=== PATIENT | female | born 1985 | race Caucasian/White ===

== ENCOUNTER 2020-12-21 15:37 | Emergency (ER) | payer OTHER, MEDICAID, SELFPAY ==
[2020-12-21 15:57] VITALS: BP 143/93; PULSE 86; RESP 16; TEMP 37.4; O2SAT 97; BMI 30.9
[2020-12-21 16:00] VITALS: PULSE 83; RESP 21; O2SAT 99
--- NOTE | 2020-12-21 16:03 | ED.CHESTPAIN ---
HPI - Chest Pain <Tiffanie Willams DO - Last Filed: 12/24/20 02:03> General Chief Complaint: Chest Pain Stated Complaint: BROWN SPOTS ON FEET TIGHTNESS OF CHEST NAUSEA Time Seen by Provider: 12/21/20 15:57 Source: patient Mode of arrival: Ambulatory Limitations: no limitations History of Present Illness HPI narrative: Patient is a 35-year-old female who presents with a variety of complaints. She noticed for very small brown spots on the top of her feet this morning which were not there yesterday. She denies any injury. She said she had very long day and then when out to dinner with a friend and when she got she noticed that her legs were extremely swollen. She slept with her legs elevated and the swelling was gone today. She said last night she got extremely sweaty and today she is short of breath with exertion. She is a smoker but quit 2 days ago because it was causing her to gag. She has been around COVID positive people on [facility], they have started testing positive. She has not yet been tested. She is having some chest tightness and feeling like she cannot breathe. But she is speaking without any difficulty at this time. Duration: constant Onset: during exertion Severity: mild Quality: tightness Related Data Home Medications Medication Instructions Recorded Confirmed escitalopram oxalate [Lexapro] #0 08/28/17 Previous Rx's Medication Instructions Recorded albuterol sulfate 2 puff INHALATION Q4-6H PRN #18 g 12/21/20 Allergies Allergy/AdvReac Type Severity Reaction Status Date / Time Penicillins [PENICILLINS] Allergy Unknown Unverified 12/06/17 13:10 Review of Systems <DO Tim Bob Last Filed: 12/24/20 02:03> Review of Systems ROS Unobtainable: All systems reviewed & are unremarkable except as noted in HPI and below Constitutional Constitutional: Denies chills, Reports excessive sweating, Denies fever(s), Denies lethargy and Denies weakness Eyes Eyes: Denies change in vision, Denies eye discharge, Denies irritation and Denies loss of vision ENT Ears, Nose, Mouth, and Throat: Denies change in voice, Denies dizziness, Denies neck pain and Denies sore throat Cardiovascular Cardiovascular: Reports chest pain, Denies syncope, Denies irregular heart rhythm, Denies lightheadedness, Denies palpitations, Reports dyspnea on exertion and Denies orthopnea Respiratory Respiratory: Reports as per HPI and Reports dyspnea on exertion Gastrointestinal Gastrointestinal: Denies abdominal pain, Denies change in bowel habits, Denies diarrhea, Denies nausea and Denies vomiting Musculoskeletal Musculoskeletal: Denies neck pain Integumentary/Breasts Skin/Breast: Denies pruritus, Denies erythema, Denies rash and Denies wounds Neurologic Neurologic: Denies dizziness, Denies syncope, Denies loss of vision and Denies weakness Endocrine Endocrine: Reports excessive sweating and Denies palpitations Patient History <Tiffanie Willams DO - Last Filed: 12/24/20 02:03> Medical History Patient denies medical problems Social History Smoking Status: Current every day smoker Smoking Status: Current every day smoker Exam <Tiffanie Willams DO - Last Filed: 12/24/20 02:03> Initial Vital Signs Initial Vital Signs: Vital Signs Temperature 99.4 F 12/21/20 15:57 Pulse Rate 86 12/21/20 15:57 Respiratory Rate 16 12/21/20 15:57 Blood Pressure 143/93 H 12/21/20 15:57 Pulse Oximetry 97 12/21/20 15:57 GENERAL: Well-appearing, well-nourished and in no acute distress. HEENT: Head atraumatic,EOMI, pupils reactive, face symmetric, moist mucous membranes CARDIOVASCULAR: Regular rate and rhythm without murmurs, rubs or gallops. RESPIRATORY: Breath sounds equal bilaterally, no wheezes rales or rhonchi. Speaks without any difficulty ABDOMEN: Soft, nontender. Normoactive bowel sounds all 4 quadrants. No guarding or rebound. EXTREMITIES: Normal range of motion, no clubbing or edema. Neurovascularly intact NEUROLOGICAL: Alert and oriented x4.Normal gait and speech. SKIN: Warm, dry, no laceration, no petechiae, no rashes or lesions. 2 very small dark spots on top of each foot. <Kwasi Rick DO - Last Filed: 12/21/20 17:40> Initial Vital Signs Initial Vital Signs: Vital Signs Temperature 99.4 F 12/21/20 15:57 Pulse Rate 86 12/21/20 15:57 Respiratory Rate 16 12/21/20 15:57 Blood Pressure 143/93 H 12/21/20 15:57 Pulse Oximetry 97 12/21/20 15:57 Course <Tiffanie Willams DO - Last Filed: 12/24/20 02:03> Orders Ordered: Discontinued Medications Albuterol (Albuterol Hfa Prepack) 1 [facility] SEEINSTR ONE Stop: 12/21/20 16:18 Albuterol/Ipratropium (Albuterol/Ipratropium 3 Ml Ampul) 3 ml INH NOW ONE Stop: 12/21/20 16:21 Last Admin: 12/21/20 16:54 Dose: 3 ml Documented by: RRALSTO Vital Signs Vital signs: Vital Signs - 8 hr 12/21/20 15:57 12/21/20 16:00 12/21/20 16:30 Temperature 99.4 F Pulse Rate 86 83 78 Respiratory Rate 16 21 19 Blood Pressure 143/93 H Pulse Oximetry 97 99 98 12/21/20 17:00 Temperature Pulse Rate 90 Respiratory Rate 17 Blood Pressure Pulse Oximetry 99 <Kwasi Rick DO - Last Filed: 12/21/20 17:40> Orders Ordered: Discontinued Medications Albuterol (Albuterol Hfa Prepack) 1 [facility] SEEINSTR ONE Stop: 12/21/20 16:18 Albuterol/Ipratropium (Albuterol/Ipratropium 3 Ml Ampul) 3 ml INH NOW ONE Stop: 12/21/20 16:21 Last Admin: 12/21/20 16:54 Dose: 3 ml Documented by: RRALSTO Vital Signs Vital signs: Vital Signs - 8 hr 12/21/20 15:57 12/21/20 16:00 12/21/20 16:30 Temperature 99.4 F Pulse Rate 86 83 78 Respiratory Rate 16 21 19 Blood Pressure 143/93 H Pulse Oximetry 97 99 98 12/21/20 17:00 Temperature Pulse Rate 90 Respiratory Rate 17 Blood Pressure Pulse Oximetry 99 MDM - Chest Pain <DO Tim Bob Last Filed: 12/24/20 02:03> Lab Data Result diagrams: 12/21/20 16:05 12/21/20 16:05 Labs: Lab Results 12/21/20 12/21/20 12/21/20 Range/Units 16:05 16:05 16:05 WBC 9.9 (4.5-11.0) X10^3/uL RBC 4.63 (4.0-5.2) X10^6/uL Hgb 11.9 L (12.0-16.0) g/dL Hct 37.2 (36-46) % MCV 80.3 (80-100) fL MCH 25.7 L (26-34) PG MCHC 32.0 (30-36) % RDW 15.4 H (11.6-14.8) % Plt Count 448 H (150-400) X10^3/uL Neut % (Auto) 68.9 (50-75) % Lymph % (Auto) 23.3 L (25-40) % Vil[place] % (Auto) 6.2 (3-14) % Eos % (Auto) 0.8 L (2-4) % Baso % (Auto) 0.8 (0-2) % Neut # (Auto) 6800 (6990-2318) /uL Lymph # (Auto) 2300 (5317-1804) /uL [place] # (Auto) 600 (0-900) /uL Eos # (Auto) 100 (0-450) /uL Baso # (Auto) 100 (0-100) /uL Sodium 141 (137-145) mmol/L Potassium 4.1 (3.4-5.1) mmol/L Chloride 104 (98-107) mmol/L Carbon Dioxide 26 (22-32) mmol/L BUN 10 (7-17) mg/dL Creatinine 0.60 (0.52-1.04) mg/dL Estimated GFR > 60.0 (>60) mL/min BUN/Creatinine Ratio 16.7 (6-22) Glucose 92 (70-100) mg/dL Calcium 9.8 (8.4-10.2) mg/dL Total Bilirubin 0.3 (0.2-1.3) mg/dL AST 24 (14-36) IU/L ALT 19 (<35) IU/L Alkaline Phosphatase 98 (38-126) U/L Total Creatine Kinase 26 L (30-135) U/L CK-MB (CK-2) TNP CK-MB (CK-2) Rel Index TNP Troponin I < 0.012 (0.01-0.034) ng/mL NT-Pro-B Natriuret Pep 59 (<125) pg/mL Total Protein 8.4 H (6.3-8.2) g/dL Albumin 4.6 (3.5-5.0) g/dL Globulin 3.8 (1.7-4.1) g/dL Albumin/Globulin Ratio 1.2 (1.0-2.8) SARS-CoV-2 (PCR) (Negative) 12/21/20 Range/Units 16:15 WBC (4.5-11.0) X10^3/uL RBC (4.0-5.2) X10^6/uL Hgb (12.0-16.0) g/dL Hct (36-46) % MCV (80-100) fL MCH (26-34) PG MCHC (30-36) % RDW (11.6-14.8) % Plt Count (150-400) X10^3/uL Neut % (Auto) (50-75) % Lymph % (Auto) (25-40) % Vil[place] % (Auto) (3-14) % Eos % (Auto) (2-4) % Baso % (Auto) (0-2) % Neut # (Auto) (1920-3275) /uL Lymph # (Auto) (0464-2901) /uL Vilas # (Auto) (0-900) /uL Eos # (Auto) (0-450) /uL Baso # (Auto) (0-100) /uL Sodium (137-145) mmol/L Potassium (3.4-5.1) mmol/L Chloride (98-107) mmol/L Carbon Dioxide (22-32) mmol/L BUN (7-17) mg/dL Creatinine (0.52-1.04) mg/dL Estimated GFR (>60) mL/min BUN/Creatinine Ratio (6-22) Glucose (70-100) mg/dL Calcium (8.4-10.2) mg/dL Total Bilirubin (0.2-1.3) mg/dL AST (14-36) IU/L ALT (<35) IU/L Alkaline Phosphatase (38-126) U/L Total Creatine Kinase (30-135) U/L CK-MB (CK-2) CK-MB (CK-2) Rel Index Troponin I (0.01-0.034) ng/mL NT-Pro-B Natriuret Pep (<125) pg/mL Total Protein (6.3-8.2) g/dL Albumin (3.5-5.0) g/dL Globulin (1.7-4.1) g/dL Albumin/Globulin Ratio (1.0-2.8) SARS-CoV-2 (PCR) Negative (Negative) Point of Care Testing Test Results Negative Urine Dip Bedside Urine Glucose Negative Bedside Urine Bilirubin - Negative Bedside Urine Ketone - Negative Urine Specific [place] 1.025 Bedside Urine Occult Blood - Negative Bedside Urine pH 6.0 Bedside Urine Protein - Negative Bedside Urine Urobilinogen - Negative Bedside Urine Nitrite - Negative Bedside Urine Leukocytes - Negative Esterase ECG Data Attestation: I personally reviewed and interpreted this ECG as follows: Prior ECG tracings: not available for review Interpretation: Normal sinus rhythm rate 87 p.r. interval 106 QRS [address] changes MDM Narrative Medical decision making narrative: Patient is being tested for COVID symptoms are quite a wide variety but she overall appears well. Patient signed out to Dr. Rick for further management. <Kwasi Rick, DO - Last Filed: 12/21/20 17:40> Lab Data Attestation: I reviewed the patient's lab results. Labs: Lab Results 12/21/20 12/21/20 12/21/20 Range/Units 16:05 16:05 16:05 WBC 9.9 (4.5-11.0) X10^3/uL RBC 4.63 (4.0-5.2) X10^6/uL Hgb 11.9 L (12.0-16.0) g/dL Hct 37.2 (36-46) % MCV 80.3 (80-100) fL MCH 25.7 L (26-34) PG MCHC 32.0 (30-36) % RDW 15.4 H (11.6-14.8) % Plt Count 448 H (150-400) X10^3/uL Neut % (Auto) 68.9 (50-75) % Lymph % (Auto) 23.3 L (25-40) % Vilas % (Auto) 6.2 (3-14) % Eos % (Auto) 0.8 L (2-4) % Baso % (Auto) 0.8 (0-2) % Neut # (Auto) 6800 (0863-1281) /uL Lymph # (Auto) 2300 (8914-7634) /uL Vilas # (Auto) 600 (0-900) /uL Eos # (Auto) 100 (0-450) /uL Baso # (Auto) 100 (0-100) /uL Sodium 141 (137-145) mmol/L Potassium 4.1 (3.4-5.1) mmol/L Chloride 104 (98-107) mmol/L Carbon Dioxide 26 (22-32) mmol/L BUN 10 (7-17) mg/dL Creatinine 0.60 (0.52-1.04) mg/dL Estimated GFR > 60.0 (>60) mL/min BUN/Creatinine Ratio 16.7 (6-22) Glucose 92 (70-100) mg/dL Calcium 9.8 (8.4-10.2) mg/dL Total Bilirubin 0.3 (0.2-1.3) mg/dL AST 24 (14-36) IU/L ALT 19 (<35) IU/L Alkaline Phosphatase 98 (38-126) U/L Total Creatine Kinase 26 L (30-135) U/L CK-MB (CK-2) TNP CK-MB (CK-2) Rel Index TNP Troponin I < 0.012 (0.01-0.034) ng/mL NT-Pro-B Natriuret Pep 59 (<125) pg/mL Total Protein 8.4 H (6.3-8.2) g/dL Albumin 4.6 (3.5-5.0) g/dL Globulin 3.8 (1.7-4.1) g/dL Albumin/Globulin Ratio 1.2 (1.0-2.8) SARS-CoV-2 (PCR) (Negative) 12/21/20 Range/Units 16:15 WBC (4.5-11.0) X10^3/uL RBC (4.0-5.2) X10^6/uL Hgb (12.0-16.0) g/dL Hct (36-46) % MCV (80-100) fL MCH (26-34) PG MCHC (30-36) % RDW (11.6-14.8) % Plt Count (150-400) X10^3/uL Neut % (Auto) (50-75) % Lymph % (Auto) (25-40) % Vil[place] % (Auto) (3-14) % Eos % (Auto) (2-4) % Baso % (Auto) (0-2) % Neut # (Auto) (7228-4284) /uL Lymph # (Auto) (7278-6823) /uL Vilas # (Auto) (0-900) /uL Eos # (Auto) (0-450) /uL Baso # (Auto) (0-100) /uL Sodium (137-145) mmol/L Potassium (3.4-5.1) mmol/L Chloride (98-107) mmol/L Carbon Dioxide (22-32) mmol/L BUN (7-17) mg/dL Creatinine (0.52-1.04) mg/dL Estimated GFR (>60) mL/min BUN/Creatinine Ratio (6-22) Glucose (70-100) mg/dL Calcium (8.4-10.2) mg/dL Total Bilirubin (0.2-1.3) mg/dL AST (14-36) IU/L ALT (<35) IU/L Alkaline Phosphatase (38-126) U/L Total Creatine Kinase (30-135) U/L CK-MB (CK-2) CK-MB (CK-2) Rel Index Troponin I (0.01-0.034) ng/mL NT-Pro-B Natriuret Pep (<125) pg/mL Total Protein (6.3-8.2) g/dL Albumin (3.5-5.0) g/dL Globulin (1.7-4.1) g/dL Albumin/Globulin Ratio (1.0-2.8) SARS-CoV-2 (PCR) Negative (Negative) Point of Care Testing Test Results Negative Urine Dip Bedside Urine Glucose Negative Bedside Urine Bilirubin - Negative Bedside Urine Ketone - Negative Urine Specific [place] 1.025 Bedside Urine Occult Blood - Negative Bedside Urine pH 6.0 Bedside Urine Protein - Negative Bedside Urine Urobilinogen - Negative Bedside Urine Nitrite - Negative Bedside Urine Leukocytes - Negative Esterase Imaging Data Chest x-ray: Radiologist's Impression: [address] [id number] ReportSigned Patient: Radha Mcadams [facility]#: [id number]: 1985Acct:[id number]/Sex: 35 / FDate of Service: 12/21/20Loc: EDAccession Number: [id number] Procedure: XR chest 2V Ordering Provider: Tiffanie Willams D.O. PROCEDURE: XR CHEST 2V INDICATIONS: short of breath TECHNIQUE: 2 views of the chest were acquired. COMPARISON: None. FINDINGS: Surgical changes and devices: None. Lungs and pleura: Lungs are clear. No pleural effusions or pneumothorax. Mediastinum: Mediastinal contours are normal. Heart size is normal. Bones and chest wall: No suspicious bony abnormalities. Soft tissues appear unremarkable. IMPRESSION: No acute cardiopulmonary disease process. Dictated by: Rebecca Lanier MD, PhD on 12/21/2020 at 16:45 Approved by: Rebecca Lanier MD, PhD on 12/21/2020 at 16:45 MDM Narrative Medical decision making narrative: Dr rick: Received turned over from Dr. Willams patient states she does feel better after the albuterol nebulizer. She is still having palpitations are she has a normal rate and rhythm on the monitor. Labs unremarkable. Chest x-ray is unremarkable. Will send home with an albuterol inhaler. Feel we can hold on further workup for now. Low suspicion for CHF. She is given return precautions and follow-up instructions. She expressed understanding agreement. Discharge Plan Departure Patient Disposition: Home Clinical Impression: Heart palpitations, Shortness of breath Instructions: DI for Shortness of Breath Activity Restrictions/Additional Instructions: Use the albuterol as directed. I recommend that you continue to abstain from smoking. I suspect that your symptoms will improve with time. Contact your primary provider for a follow-up. Return to the emergency department for any new or worsening symptoms Prescriptions: New albuterol sulfate 90 mcg/actuation HFA aerosol inhaler 2 puff inhalation Q4-6H PRN (Reason: shortness of breath or wheezing) Qty: 18 RF: 0 No Action escitalopram oxalate [Lexapro] 10 MG tablet Qty: 0 RF: 0
--- NOTE | 2020-12-21 16:17 | DI.RAD.S_ITS ---
PROCEDURE: XR CHEST 2V INDICATIONS: short of breath TECHNIQUE: 2 views of the chest were acquired. COMPARISON: None. FINDINGS: Surgical changes and devices: None. Lungs and pleura: Lungs are clear. No pleural effusions or pneumothorax. Mediastinum: Mediastinal contours are normal. Heart size is normal. Bones and chest wall: No suspicious bony abnormalities. Soft tissues appear unremarkable. IMPRESSION: No acute cardiopulmonary disease process. Dictated by: Rebecca Lanier MD, PhD on 12/21/2020 at 16:45 Approved by: Rebecca Lanier MD, PhD on 12/21/2020 at 16:45
[2020-12-21 16:28] LABS: Add Manual Diff / Slide Review NO; Basophils Absolute Auto 100 /uL (0-100); Basophils Percent Auto 0.8 % (0-2); Eosinophils Absolute Auto 100 /uL (0-450); Eosinophils Percent Auto 0.8 % (2-4); Hematocrit 37.2 % (36-46); Hemoglobin 11.9 g/dL (12.0-16.0); Lymphocytes Absolute Auto 2300 /uL (1100-4500); Lymphocytes Percent Auto 23.3 % (25-40); Mean Corpuscular Hemoglobin 25.7 PG (26-34); Mean Corpuscular Volume 80.3 fL (80-100); Monocytes Absolute Auto 600 /uL (0-900); Monocytes Percent Auto 6.2 % (3-14); Neutrophils Absolute Auto 6800 /uL (1500-7000); Neutrophils Percent Auto 68.9 % (50-75); Platelet Count 448 X10^3/uL (150-400); Red Blood Cell Count 4.63 X10^6/uL (4.0-5.2); Red Cell Distribution Width 15.4 % (11.6-14.8); White Blood Cell Count 9.9 X10^3/uL (4.5-11.0)
[2020-12-21 16:30] VITALS: PULSE 78; RESP 19; O2SAT 98
[2020-12-21 16:43] LABS: COVID19 -Nasal RAPID Negative (Negative)
[2020-12-21 16:45] LABS: Creatine Kinase 26 U/L (30-135)
[2020-12-21 16:47] LABS: Alanine Aminotransferase 19 IU/L (<35); Albumin 4.6 g/dL (3.5-5.0); Albumin Globulin Ratio 1.2 (1.0-2.8); Alkaline Phosphatase 98 U/L (38-126); Aspartate Aminotransferase 24 IU/L (14-36); BUN Creatinine Ratio 16.7 (6-22); Bilirubin Total 0.3 mg/dL (0.2-1.3); Blood Urea Nitrogen 10 mg/dL (7-17); Calcium 9.8 mg/dL (8.4-10.2); Carbon Dioxide 26 mmol/L (22-32); Chloride 104 mmol/L (98-107); Estimated Glomerular Filt Rate > 60.0 mL/min (>60); Globulin 3.8 g/dL (1.7-4.1); Glucose 92 mg/dL (70-100); HEMOLYSIS 17 (0-50); Potassium 4.1 mmol/L (3.4-5.1); Sodium 141 mmol/L (137-145); Total Protein 8.4 g/dL (6.3-8.2)
[2020-12-21] MEDS: ALBUTEROL/IPRATROPIUM 3 ML AMPUL INH (16:54)
[2020-12-21 16:58] LABS: NT-proBNP (BNP-Adult 18+) 59 pg/mL (<125); Troponin I < 0.012 ng/mL (0.01-0.034)
[2020-12-21 17:00] VITALS: PULSE 90; RESP 17; O2SAT 99
--- NOTE | 2020-12-21 17:03 | RT ---
Pt issued spacer.
[2020-12-21 17:12] VITALS: BP 120/62; PULSE 81; RESP 18; O2SAT 97
[2020-12-21 17:30] VITALS: PULSE 84; RESP 18; O2SAT 99
== END 2020-12-21 17:55 | disposition home or self-care (01) ==
PROVIDERS: Emergency Medicine; Emergency Provider Emergency Medicine
DX: R00.2 Palpitations (principal); R06.02 Shortness of breath; Z20.822 Contact with and (suspected) exposure to COVID-19
CPT/HCPCS: 71046; 80053; 81003; 81025; 82550; 83880; 84484; 85025; 87635; 93005; 94640; 99283; 99284; C9803

== ENCOUNTER → 2023-11-14 12:17 | Outpatient (CLI) | payer OTHER, MEDICAID, SELFPAY ==
--- NOTE | 2023-11-14 12:21 | DI.RAD.S_ITS ---
PROCEDURE: XR ANKLE RT MIN 3V INDICATIONS: RT FOOT AND ANKLE PAIN TECHNIQUE: 3 views of the ankle were acquired. COMPARISON: None. FINDINGS: Bones: No fractures or dislocations. Ankle mortise is normally aligned. No suspicious bony lesions. Soft tissues: No tibiotalar joint effusion. Achilles tendon appears normal. IMPRESSION: No acute bony abnormality or significant effusion. If there are persistent symptoms or clinical suspicion for pathology, then repeat radiographs or advanced imaging (CT or MRI) may be considered for further evaluation. Dictated by: Lv Harrison M.D. on 11/14/2023 at 15:28 Approved by: Lv Harrison M.D. on 11/14/2023 at 15:33
--- NOTE | 2023-11-14 12:21 | DI.RAD.S_ITS ---
PROCEDURE: XR FOOT RT MIN 3V INDICATIONS: RT FOOT AND ANKLE PAIN TECHNIQUE: 3 views of the foot were acquired. COMPARISON: None. FINDINGS: Bones: No fractures or dislocations. No suspicious bony lesions. Soft tissues: No tibiotalar joint effusion. Achilles tendon appears normal. IMPRESSION: No acute bony abnormality. If there are persistent symptoms or clinical suspicion for pathology, then repeat radiographs or advanced imaging (CT or MRI) may be considered for further evaluation. Dictated by: Lv Harrison M.D. on 11/14/2023 at 15:33 Approved by: Lv Harrison M.D. on 11/14/2023 at 15:37
== END ==
PROVIDERS: PCP Physician Assistant; Referring Provider Podiatrist Foot & Ankle Surgery; Visit Provider Podiatrist Foot & Ankle Surgery
DX: M25.571 Pain in right ankle and joints of right foot (principal)
CPT/HCPCS: 73610; 73630

== ENCOUNTER → 2025-02-26 08:06 | Outpatient (CLI) | payer OTHER, SELFPAY ==
--- NOTE | 2025-02-26 08:08 | DI.NM.S_ITS ---
PROCEDURE: NM EXERCISE TREADMILL NON NUC COMPARISON: None. INDICATIONS: SOB/CHEST PAIN FINDINGS: Patient exercised per the standard Abdulaziz protocol. Total exercise time was 5 minutes and 1 seconds. Test was terminated secondary to chest pain. Maximal heart rate obtained is 164 bpm which is 91% of max predicted heart rate. Maximum blood pressure was 142/72[place] [address]. [place] +42%. 7.0 METS. No ischemic changes noted. No arrhythmias present. Normal heart rate and blood pressure response to exercise. Patient did complain of chest pain at peak stress which resulted in termination of the stress test. The chest pain resolved upon discontinuation of exercise. IMPRESSION: 1. Equivocal exercise treadmill stress test for ischemia due to presence of exercise-induced chest pains without ECG changes. Dictated by: Jose Miguel Upton M.D. on 02/26/2025 at 16:58 Approved by: Jose Miguel Upton M.D. on 02/26/2025 at 17:00
== END ==
LOC: NUCM 08:06
PROVIDERS: PCP Physician Assistant; Referring Provider Internal Medicine Cardiovascular Disease; Visit Provider Internal Medicine Cardiovascular Disease
DX: R06.02 Shortness of breath (principal); R07.9 Chest pain, unspecified
CPT/HCPCS: 93017

== ENCOUNTER → 2025-02-26 08:09 | Outpatient (CLI) | payer OTHER, SELFPAY ==
--- NOTE | 2025-02-26 08:10 | DI.ECHO.S_ITS ---
[facility] : : [address] : : [place] : : [id number] : : Phone: [phone] Echocardiogram Report + + :Name: BRAD EASON Study Date: 02/26/2025 Height: 64 in : :Hospital ReadingLocation: Weight: 229 lb : : Gender: Female BSA: 2.1 m2 : :: 1985 Age: 39 yrs BP: 110/75 mmHg: :Reason For Study: SHORTNESS OF BREATH, CHEST PAIN : :Ordering Physician: REBECA, : :LEXIE Nance Performed By: Mariela Oh : :Referring: LEXIE CORDOBA : + + Interpretation Summary The ejection fraction is estimated to be 55-60%. Diastolic parameters suggest probable normal left ventricular diastolic function and normal filling pressures. The right ventricle is normal in size and function. No valvular abnormalities. Pulmonary artery pressures cannot be estimated because of the lack of a measurable TR jet velocity but the IVC suggests a CVP of around 3 mmHg. Procedure: A two-dimensional transthoracic echocardiogram with color flow and Doppler was performed. The study quality was technically adequate. There is no prior echocardiogram noted for this patient. The patient was in sinus rhythm with heart rates between 61-82 bpm during the exam. Left Ventricle: The left ventricle is normal in size and wall thickness. The ejection fraction is estimated to be 55-60%. Diastolic parameters suggest probable normal left ventricular diastolic function and normal filling pressures. Right Ventricle: The right ventricle is normal in size and function. Atria: The left atrial size is normal. Right atrial size is normal. There is no Doppler evidence for an interatrial shunt. Mitral Valve: The mitral valve leaflets appear to open well. There is trace mitral regurgitation. Aortic Valve: The aortic valve is trileaflet. The aortic valve opens well. There is no aortic valve stenosis. No aortic regurgitation is present. Tricuspid Valve: The tricuspid valve leaflets are thin and pliable. There is trace tricuspid regurgitation. Pulmonary artery pressures cannot be estimated because of the lack of a measurable TR jet velocity but the IVC suggests a CVP of around 3 mmHg. Pulmonic Valve: The pulmonic valve leaflets are thin and pliable; valve motion is normal. There is a trace or physiologic amount of pulmonic regurgitation. Great Vessels: The aortic root is normal size. The dimensions of the ascending aorta are normal. The IVC is of normal diameter and collapses greater than 50% with a sniff. This suggests a low right atrial pressure of 3 mm Hg. Pericardium/ Pleura There is no pericardial effusion. There is no pleural effusion. MMode/2D Measurements & Calculations LVIDd: 4.5 cm LVOT diam: 2.0 cm LVIDs: 3.1 cm Ao root diam: 2.8 cm FS: 31.1 % asc Aorta Diam: 2.6 cm EPSS: 0.49 cm Ao Arch Diam (Prox Trans): 2.3 cm IVSd: 0.92 cm LVPWd: 0.71 cm LV braden. diameter/BSA (cm/m^2): 2.2 LV sys. diameter/BSA (cm/m^2): 1.5 LA A2 area: 13.3 cm2 RA long axis: 4.5 cm LA A4 area: 15.1 cm2 RA area: 12.7 cm2 LA length (vol): 4.7 cm RA vol: 30.3 ml LA vol: 36.3 ml RA : 14.6 ml/m2 LA vol index: 17.5 ml/m2 IVC diam: 1.3 cm RVD1 (basal): 3.7 cm RVD2 (mid): 3.0 cm TAPSE: 2.1 cm Doppler Measurements & Calculations Ao V2 max: 120.3 cm/sec LVOT Max Ricardo: 112.7 cm/sec Ao V2 mean: 83.7 cm/sec LV V1 max P.1 mmHg Ao max P.7 mmHg LV V1 VTI: 20.4 cm Ao mean P.2 mmHg INOCENCIO(I,D): 2.6 cm2 Ao V2 VTI: 23.7 cm INOCENCIO(V,D): 2.9 cm2 sev ratio: 0.86 INOCENCIO indexed to BSA (cm^2/m^2): 1.3 MV E max ricardo: 87.9 cm/sec PA V2 max: 87.8 cm/sec MV A max ricardo: 56.1 cm/sec PA V2 mean: 57.6 cm/sec MV E/A: 1.6 PA mean P.5 mmHg Med Peak E' Ricardo: 9.7 cm/sec PA pr(Accel): 30.2 mmHg E/E' med: 9.1 Lat Peak E' Ricardo: 14.3 cm/sec E/E' lat: 6.1 E/e' average: 7.6 MV dec time: 0.17 sec SV(LVOT): 62.1 ml Reading Physician:09:23 PM
== END ==
LOC: ECHO 08:09
PROVIDERS: PCP Physician Assistant; Referring Provider Internal Medicine Cardiovascular Disease; Visit Provider Internal Medicine Cardiovascular Disease
DX: R06.02 Shortness of breath (principal); R07.9 Chest pain, unspecified
CPT/HCPCS: 93017; 93306